=== PATIENT | male | born 1935 | race Caucasian/White ===

== ENCOUNTER 2021-11-11 12:57 | Inpatient (IN) | payer MEDICARE, OTHER ==
[~2021-11-11] VITALS: Ht 185.4 cm; Wt 108.9 kg
[~2021-11-11 12:57] MED LIST: ASPIRIN EC81 MG PO; ATORVASTATIN CA10 MG PO; CLOPIDOGREL75 MG PO; ISOSORBIDE DINI30 MG PO; LEVOTHYROXINE75 MCG PO; LISINOPRIL5 MG PO; MESTINON60 MG PO; OMEPRAZOLE20 MG PO; PREDNISONE2.5 MG PO
[2021-11-11 14:17] LABS: RED BLOOD COUNT 4.48 M/UL (4.20-5.50); WHITE BLOOD COUNT 19.9 K/UL (4.5-11.0)
[2021-11-11] MEDS ORDERED: ELIQUIS5 MG PO (17:57)
[2021-11-11] MEDS ORDERED: DEXAMETHASONE2 MG PO (17:58)
[2021-11-11] MEDS ORDERED: METOPROLOL TART25 MG PO (17:59)
[2021-11-11] MEDS ORDERED: LISINOPRIL20 MG PO (17:59)
[2021-11-12 01:41] LABS: HEMOGLOBIN 14.1 gm/dl (14.0-17.5); RED BLOOD COUNT 4.3 M/UL (4.20-5.50); WHITE BLOOD COUNT 20.2 K/UL (4.5-11.0)
[2021-11-13 02:27] LABS: HEMOGLOBIN 12.6 gm/dl (14.0-17.5)
[2021-11-13 02:34] LABS: RED BLOOD COUNT 3.81 M/UL (4.20-5.50); WHITE BLOOD COUNT 14.1 K/UL (4.5-11.0)
[2021-11-13 03:55] LABS: BUN/CREATININE RATIO 51 (0-10)
[2021-11-14 01:37] LABS: HEMOGLOBIN 12.4 gm/dl (14.0-17.5); RED BLOOD COUNT 3.82 M/UL (4.20-5.50); WHITE BLOOD COUNT 10.7 K/UL (4.5-11.0)
[2021-11-14 02:15] LABS: BUN/CREATININE RATIO 47 (0-10)
[2021-11-15 01:55] LABS: HEMOGLOBIN 11.8 gm/dl (14.0-17.5); RED BLOOD COUNT 3.53 M/UL (4.20-5.50); WHITE BLOOD COUNT 9.2 K/UL (4.5-11.0)
[2021-11-15 02:13] LABS: BUN/CREATININE RATIO 31 (0-10)
[2021-11-17 02:10] LABS: HEMOGLOBIN 12.3 gm/dl (14.0-17.5); RED BLOOD COUNT 3.73 M/UL (4.20-5.50); WHITE BLOOD COUNT 9.6 K/UL (4.5-11.0)
[2021-11-17 03:49] LABS: BUN/CREATININE RATIO 22 (0-10)
[2021-11-18 07:02] LABS: HEMOGLOBIN 11.1 gm/dl (14.0-17.5); WHITE BLOOD COUNT 10.7 K/UL (4.5-11.0)
[2021-11-18 07:07] LABS: RED BLOOD COUNT 3.34 M/UL (4.20-5.50)
[2021-11-18 07:22] LABS: BUN/CREATININE RATIO 22 (0-10)
[2021-11-18] MEDS ORDERED: ASPIRIN EC81 MG PO (10:32)
[2021-11-18] MEDS ORDERED: FERROUS GLUCON324 M1 PO (10:32)
[2021-11-18] MEDS ORDERED: CYANOCOBAL1000 MCG/1 INJ (10:32)
[2021-11-18] MEDS ORDERED: TYLENOL EL325 MG/10 PO (10:32)
[2021-11-18] MEDS ORDERED: THERAGRAN M TAB1 EA PO (10:32)
[2021-11-18] MEDS ORDERED: IPRAT-ALBUT 0.5-3 ML NEB (10:32)
[2021-11-18] MEDS ORDERED: FLOMAX 0.4 MG0.4 MG PO (10:32)
== END 2021-11-18 15:29 | DRG 871 ==
LOC: ER1 12:57 → PROG CARE 15:45 → CDU 15:45 → PROG CARE 21:46 → MED SURG 4 11-17 11:25
PROVIDERS: Emergency Medicine; Internal Medicine; Internal Medicine Infectious Disease; ADMIT Internal Medicine
PROC: 3E03329 Introduction of Other Anti-infective into Peripheral Vein, Percutaneous Approach (ICD-10-PCS; principal; 2021-11-11)
PROC: B24BZZZ Ultrasonography of Heart with Aorta (ICD-10-PCS; 2021-11-12)
DX: A41.9 Sepsis, unspecified organism (principal); I21.4 Non-ST elevation (NSTEMI) myocardial infarction; J69.0 Pneumonitis due to inhalation of food and vomit; G12.22 Progressive bulbar palsy; I13.0 Hypertensive heart and chronic kidney disease with heart failure and stage 1 through stage 4 chronic kidney disease, or unspecified chronic kidney disease; N17.9 Acute kidney failure, unspecified; E87.2 Acidosis; N13.6 Pyonephrosis; T79.6XXA Traumatic ischemia of muscle, initial encounter; I50.9 Heart failure, unspecified; M19.90 Unspecified osteoarthritis, unspecified site; G70.00 Myasthenia gravis without (acute) exacerbation; G62.9 Polyneuropathy, unspecified; W19.XXXA Unspecified fall, initial encounter; K21.9 Gastro-esophageal reflux disease without esophagitis; Z20.822 Contact with and (suspected) exposure to COVID-19; M47.9 Spondylosis, unspecified; I48.0 Paroxysmal atrial fibrillation; E78.5 Hyperlipidemia, unspecified; N18.30 Chronic kidney disease, stage 3 unspecified; E03.9 Hypothyroidism, unspecified; J84.10 Pulmonary fibrosis, unspecified; E53.8 Deficiency of other specified B group vitamins; H90.5 Unspecified sensorineural hearing loss; I25.10 Atherosclerotic heart disease of native coronary artery without angina pectoris; I35.0 Nonrheumatic aortic (valve) stenosis; Z79.01 Long term (current) use of anticoagulants; Z86.73 Personal history of transient ischemic attack (TIA), and cerebral infarction without residual deficits; Z79.02 Long term (current) use of antithrombotics/antiplatelets; Z79.899 Other long term (current) drug therapy; Z98.890 Other specified postprocedural states; Z90.49 Acquired absence of other specified parts of digestive tract; Y92.009 Unspecified place in unspecified non-institutional (private) residence as the place of occurrence of the external cause
CPT/HCPCS: 36415; 70450; 71045; 71250; 71270; 72131; 73030; 73564; 80048; 80053; 80061; 81001; 82550; 82553; 82607; 82728; 82746; 83519; 83540; 83550; 83605; 83735; 84100; 84132; 84484; 85025; 85027; 86140; 86255; 87040; 87086; 92526; 92610; 93005; 94640; 94664; 94760; 94762; 96374; 96375; 97110; 97110-GP-CQ; 97163; 97166; 97530-GP-CQ; 99285; J0696; J1756; J2185; J3475; Q9967; U0002